=== PATIENT | female | born 1945 | race Caucasian/White ===

== ENCOUNTER 2020-09-13 01:52 | Outpatient (CLI) | payer MEDICARE, OTHER, SELFPAY ==
[2020-09-13 11:26] LABS: Source Nasal/Nares
[2020-09-14 13:25] LABS: COVID-19 PCR Negative (Negative)
== END 2020-09-13 01:53 | disposition home or self-care (01) ==
LOC: LBO 01:52
PROVIDERS: Visit Provider Obstetrics & Gynecology
DX: Z20.822 Contact with and (suspected) exposure to COVID-19 (principal); Z01.818 Encounter for other preprocedural examination
CPT/HCPCS: 87635

== ENCOUNTER 2020-09-13 02:23 | Outpatient (CLI) | payer MEDICARE, OTHER, SELFPAY ==
[2020-09-13 10:21] LABS: Abs Immature Grans 0.01 10^3/uL (0.0-0.06); Absolute Basophil Count 0.05 10^3/uL (0.0-0.2); Absolute Eosinophil Count 0.19 10^3/uL (0.0-0.7); Absolute Lymphocyte Count 1.45 10^3/uL (1.2-3.4); Absolute Monocyte Count 0.49 10^3/uL (0.1-0.8); Absolute Neutrophil Count 3.57 10^3/uL (1.2-6.7); Basophils % 0.9; Eosinophils % 3.3; HCT 38.5 % (36.0-46.0); HGB 12.5 g/dL (11.2-15.7); Immature Grans % 0.2; Lymphocytes % 25.2; MCH 28.9 pg (27.0-33.0); MCHC 32.5 % (32.0-36.0); MCV 89.1 fL (80-95); MPV 9.3 fL (8.0-11.0); Monocytes % 8.5; Neutrophils % 61.9; Nucleated RBC 0 %; Platelet Count 273 10^3/uL (130-400); RBC 4.32 10^6/uL (3.93-5.22); RDW 13.3 % (11.7-14.6); RDW-SD 43.8 fL; WBC 5.76 10^3/uL (4.4-10.8)
== END 2020-09-13 02:24 | disposition home or self-care (01) ==
LOC: LBO 02:23
PROVIDERS: Visit Provider Obstetrics & Gynecology
DX: N92.4 Excessive bleeding in the premenopausal period (principal); Z01.818 Encounter for other preprocedural examination; Z01.812 Encounter for preprocedural laboratory examination
CPT/HCPCS: 36415; 86850; 86900; 86901; 87635; 85025

== ENCOUNTER 2020-09-15 06:09 | Day surgery (SDC) | payer MEDICARE, OTHER, SELFPAY ==
[2020-09-15 06:20] VITALS: BP 155/74; PULSE 84; RESP 16; TEMP 36.8; O2SAT 98
[2020-09-15] MEDS: Lactated Ringers 1,000 ML 125 ML IV (06:45)
--- NOTE | 2020-09-15 07:01 | W.ANESPRE ---
General Info Date of Service Date Performed: 09/15/20 Height: 5 ft 5 in Weight: 75.5 kg Body Mass Index (BMI): 27.6 Surgical Procedure: Operation Date: 09/15/20 07:40 Proposed Procedures Side Surgeon p Dilation & Curettage with Hysteroscopy Autumn Parks DO Meds Allergies and Home Medications Allergies Allergy/AdvReac Type Severity Reaction Status Date / Time No Known Allergies Allergy Verified 09/15/20 06:31 Home Medication Medication Instructions Recorded levothyroxine 50 mcg capsule 100 mcg PO DAILY 09/06/20 losartan 50 mg tablet 50 mg PO DAILY 09/06/20 timolol maleate 0.5 % eye drops 1 drp OPHTHALMIC (EYE) DAILY 09/06/20 calcium 600 mg PO DAILY 09/14/20 ergocalciferol (vitamin D2) 1,250 mcg PO QMONTH 09/14/20 [Vitamin D2] [id number] 1 tab PO DAILY 09/14/20 [Multivitamin 50 Plus] Current Visit Medications: Current Medications Generic Name Dose Route Start Last Admin Trade Name Roma PRN Reason Stop Dose Admin Ringer's Solution 1,000 mls @ 125 mls/hr 09/15/20 06:00 09/15/20 06:45 IV 10/14/20 23:59 125 mls/hr INFUSION NOEL Administration IV Miscellaneous Supplies 1 each 09/15/20 06:00 Iv Access IV 10/14/20 23:59 DIRECTED NOEL Sodium Chloride 0 ml 09/15/20 06:00 Normal Saline Flush 10 Ml Syr IV 10/14/20 23:59 PRN PRN Sodium Chloride 0 ml 09/15/20 06:00 Normal Saline 10 Ml Vial IJ 10/14/20 23:59 DIRECTED PRN Sterile Water 0 ml 09/15/20 06:00 Water,Injection,Sterile 10 Ml Vial IJ 10/14/20 23:59 DIRECTED PRN PFSH Active Problems Active Problems: Problem Status Onset Code Endometrial thickening on ultrasound R93.89 HTN (hypertension) I10 Medical History Medical History Endometrial thickening on ultrasound HTN (hypertension) Hypothyroid Surgical History Surgical History History of colonoscopy History of laparoscopy per patient has bilat salpingectomy at [facility] – [place], [place]. Tobacco Smoking/Tobacco Use Status: Never Second hand exposure: No Alcohol Alcohol Intake: never Substance Use Substance use: Never Substance use type: does not use Prental History History 2 Para Hx # Term Pregnancies 2 Multiple births Hx # Pregnancies Ectopic pregnancies AB induced Hx Number of Living Children 2 AB spontaneous Vital Signs and Lab Results Vital Signs Most Recent Vital Signs in EMR: Most Recent Vital Signs Temp Pulse Resp BP Pulse Ox 36.8 C 84 16 155/74 H 98 09/15/20 06:20 09/15/20 06:20 09/15/20 06:20 09/15/20 06:20 09/15/20 06:20 Lab Results Blood Type / Crossmatch: Patient ABO/Rh A Positive 09/13/20 10:13 09/13/20 Antibody Screen NEGATIVE 09/13/20 10:13 09/13/20 Complete Blood Count: White Blood Count 5.76 10^3/uL (4.4-10.8) 09/13/20 10:13 09/13/20 Red Blood Count 4.32 10^6/uL (3.93-5.22) 09/13/20 10:13 09/13/20 Hemoglobin 12.5 g/dL (11.2-15.7) 09/13/20 10:13 09/13/20 Hematocrit 38.5 % (36.0-46.0) 09/13/20 10:13 09/13/20 Platelet Count 273 10^3/uL (130-400) 09/13/20 10:13 09/13/20 Complete Metabolic Panel: No Data to Display Liver Function Panel: No Data to Display Coagulation Panel: No Data to Display Cardiac Panel: No Data to Display Arterial Blood Gas: No Data to Display Venous Blood Gas: No Data to Display Pancreas Panel: No Data to Display Thyroid Panel: No Data to Display Infectious Disease: Coronavirus (COVID-19)(PCR) Negative (Negative) 09/13/20 10:25 09/13/20 Coronavirus 2019 Source Nasal/Nares 09/13/20 10:25 09/13/20 Blood Cultures: No Data to Display Toxicology Panel: No Data to Display Anesthesia Assessment and Plan Anesthesia History Personal History: No History of Anesthesia Complications Family History: No Family History of Anesthesia Complications Exercise Tolerance Exercise Tolerance: Metabolic Equivalents>4 Pertinent Negatives Pertinent Negatives: No Symptoms of GERD, No Major Cardiovascular Symptoms or Complaints, No Major Pulmonary Symptoms or Complaints and No History of CVA/TIA Cardiac & Pulmonary Exam Cardiac Exam: Normal S1/S2 Heart Sounds Pulmonary Exam: Clear Bilateral Breath Sounds Airway Exam Known Difficult Airway: No Mallampati Class: 1 Mouth Opening: Normal (> 3cm) Thyromental Distance: Greater than 3 cm Neck Range of Motion: Full ROM Neck Circumference: Normal Teeth Condition: Removable Dentures/Plates Upper (Unable to remove, glued in his AM) ASA Classification ASA Score: ASA 2 Emergency Case?: No NPO Status NPO Status: NPO Clears >2 hours, Solids >8 hours Anesthesia Plan Resuscitation Status: Full Code Anesthesia Technique: MAC Anesthesia Airway Planned: Natural Airway Monitors Used: Standard Monitors
[2020-09-15 07:04] VITALS: BMI 27.6
--- NOTE | 2020-09-15 07:52 | ENDO_PTH ---
PATIENT: Chiara Ronquillo LOC: [facility] U#:[id number] AGE/SX: 75/F ROOM: RE09/15/[address]: Autumn Parks DO : 1945 BED: DIS: 09/15/2020 SPEC #: [id number] RECD: 09/15/20 12:51 STATUS: GENEVA RE #: [id number] LOULOU: 09/15/20 07:[address]: Autumn Parks DEPT: Surgical Specimen RECD BY: Barbara Hare ENTERED: 09/15/20 12:52 SP TYPE: Endo OTHR DR: Ronnell Patterson Tissues: 1 - ENDOCERVICAL BX/CURRETTE 2 - ENDOMETRIUM BX/CURRETTE Procedures: GROSS AND MICRO LEVEL 4 Comments: [id number]
--- NOTE | 2020-09-15 08:06 | W.PM.OP ---
Date of service: 09/15/20 Time of Service: 08:06 Operative Note Operative Note DATE OF PROCEDURE: 09/15/20 PRE-OP DIAGNOSIS: Postmenopausal bleeding, failed office endometrial biopsy POST-OP DIAGNOSIS: same (With cervical stenosis) PROCEDURE: Hysteroscopy with dilation and curettage SURGEON: Autumn Praks ANESTHESIA TYPE: General:No Airway Refer to Anesthesia Record ESTIMATED BLOOD LOSS: 5 PATHOLOGY: other (1. Endocervical curetting 2. Endometrial curetting) COMPLICATIONS: None Patient was transported to: PACU Patient's condition: stable Indications: Endometrial stripe of 6 mm with postmenopausal bleeding Findings: Atrophic vagina. Cervical stenosis. Tiny polypoid structure in the endocervical canal. Smooth regular endometrium. Procedure Description: Patient 74-year-old female who had an episode of postmenopausal bleeding with ultrasound confirmed thickened endometrium. She was referred by primary care who had attempted endometrial sampling which was unsatisfactory due to cervical stenosis. Risk benefits and alternatives of procedure have been explained to the patient and full informed consent was obtained. Patient was taken the operating suite with an IV running where she is placed in the dorsal supine position and anesthesia administered. She was then placed in the modified dorsolithotomy position and prepped and draped in usual sterile fashion. Exam under anesthesia revealed a uterus that was midline and mobile without evidence of mass. At this point speculum was placed into the vaginal vault and a single-tooth tenaculum used to grasp the anterior lip of the cervix. Cervical os dilated the point that a 5 mm hysteroscope could be passed with ease. With saline installation the endometrial cavity and endocervical cavity were inspected. Endometrial cavity appeared smooth and regular. There was a tiny, probably 2 to 3 mm polypoid structure in the endocervical canal which appears benign. At this point hysteroscope portion of the procedure was terminated. Endocervical curettage performed followed by endometrial curettage, both for scant tissue. Tenaculum was then removed. Tenaculum site was inspected and found to be hemostatic. Speculum was removed. Patient was returned to the dorsal supine position and awoke from anesthesia with ease. She was taken recovery room in stable condition. Findings: Cervical stenosis, tiny polyp in the lower uterine segment. Smooth regular endometrial cavity. Complications: None apparent Blood loss: 5 mL Pathology: 1. Endocervical curetting 2. Endometrial curetting
[2020-09-15 08:08] VITALS: BP 144/79; PULSE 73; RESP 14; TEMP 36.1; O2SAT 95
[2020-09-15 08:35] VITALS: BP 149/83; PULSE 74; RESP 16; TEMP 36.5; O2SAT 100
--- NOTE | 2020-09-15 09:58 | W.ANESPOSTOP ---
Postoperative Evaluation Date, Time and Location Date Performed: 09/15/20 Time Performed: 08:49 Patient Location: Day Surgery Unit Vital Signs Most Recent Imported Vital Signs: Most Recent Vital Signs Temp Pulse Resp BP Pulse Ox 36.5 C 74 16 149/83 H 100 09/15/20 08:35 09/15/20 08:35 09/15/20 08:35 09/15/20 08:35 09/15/20 08:35 Pain Score Most Recent Pain Score: Most Recent Pain Score Pain Level 4 09/15/20 08:08 Assessment Mental Status: Awake (Alert & Oriented to Patient Baseline) Airway and Respiratory Function: Patent airway with normal (patient baseline) respiratory exam Cardiovascular Function: Hemodynamically Stable Hydration Status: Adequately Hydrated Nausea & Vomiting: No Nausea or Vomiting Pain: Pt. Denies Any Pain Peripheral Nerve Block: Patient did not receive a nerve block
== END 2020-09-15 09:25 | disposition home or self-care (01) ==
PROVIDERS: PCP Family Medicine; Visit Provider Obstetrics & Gynecology
PROC: 0UDB8ZZ Extraction of Endometrium, Via Natural or Artificial Opening Endoscopic (ICD-10-PCS; CPT 58558; principal; 2020-09-15 07:30)
DX: N95.0 Postmenopausal bleeding (principal); R93.89 Abnormal findings on diagnostic imaging of other specified body structures; N88.2 Stricture and stenosis of cervix uteri; N84.0 Polyp of corpus uteri
CPT/HCPCS: 58558; 88305; J1885; J2001